=== PATIENT | female | born 1985 | race Caucasian/White ===

== ENCOUNTER 2018-11-04 07:32 | Emergency (ER) | payer BC, MEDICAID ==
[~2018-11-04] VITALS: Ht 167.6 cm; Wt 70.0 kg
[~2018-11-04 07:32] MED LIST: [UNRECOGNIZED DRUG - OTHER]
[2018-11-04 07:35] VITALS: BP 122/80; PULSE 77; RESP 17; Ht 167.6 cm; Wt 70.0 kg
[2018-11-04] MEDS ORDERED: KETOROLAC 30 MG INJ IM STA (09:37)
[2018-11-04] MEDS ORDERED: CYCL10TA7 PO (09:42)
[2018-11-04] MEDS ORDERED: NAPR-985 PO (09:42)
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
== END 2018-11-04 10:11 | disposition home or self-care (01) ==
LOC: FTE 07:32
DX: S46.911A Strain of unspecified muscle, fascia and tendon at shoulder and upper arm level, right arm, initial encounter (principal); V49.40XA Driver injured in collision with unspecified motor vehicles in traffic accident, initial encounter
CPT/HCPCS: 81025; 96372; 99284; J1885